=== PATIENT | male | born 1935 | race Caucasian/White ===

== ENCOUNTER 2018-03-06 16:16 | Emergency (ER) | payer MEDICARE, SELFPAY ==
[2018-03-06 16:17] VITALS: BP 160/84; PULSE 116; RESP 17; TEMP 36.3; O2SAT 98; BMI 23.7
--- NOTE | 2018-03-06 16:36 | EKG12_ITS ---
Test Reason : CP Blood Pressure : / mmHG Vent. Rate : 105 BPM Atrial Rate : 105 BPM P-R Int : 160 ms QRS Dur : 094 ms QT Int : 336 ms P-R-T Axes : 063 039 075 degrees QTc Int : 444 ms Sinus tachycardia Nonspecific ST abnormality Abnormal ECG Confirmed by KSENIA BRYANT, KHANG ([id number]), managing editor LIAM KURTZ ([id number] on 03/07/2018 5:17:45 PM Referred By: ES/ Confirmed By:KHANG MCCORMACK MD
--- NOTE | 2018-03-06 16:38 | ED.VISSUMM ---
- ER Visit Summary Date of Service: 03/06/18 Chief Complaint: Chest pain History of Present Illness: The patient is a 82 M who presents with right-sided chest pain that has been constant for the past week. Patient describes as a tightness. Patient states the pain is over the right side of his chest. Patient states nothing makes it better or worse. Patient admits to some lightheadedness and a slight cough. Patient denies any fevers or chills. Patient denies any nausea or vomiting. Patient denies any shortness of breath. Patient denies any diaphoresis. Patient's cardiac risk factors include hypertension. Patient has a pulmonary embolism risk factor of recent travel to [place]. Physical Examination: Vital signs are stable except for mild tachycardia of 116. Patient is afebrile. Patient is in no acute distress. Oral mucosa is pink and moist. Neck is supple. Trachea is midline. There is no JVD noted. Heart was regular slightly tachycardic. There are no murmurs noted. Lungs are clear and equal bilateral. Abdomen is soft. Bowel sounds are normal. There is no tenderness. There is no guarding noted. Skin is warm dry. Cranial nerves II through XII are intact. There are no focal motor or sensory deficits noted. The remaining physical exam is within normal limits. Test Results: EKG showed sinus tachycardia with a rate of 105. There are no acute ST or T wave changes. CBC was normal. Basic metabolic profile showed a slightly elevated glucose of 142. Alk phos is slightly elevated at 137. Troponin was normal at 0.044. D-dimer was elevated at 4.78. CTA of the chest was done because of this. There is no evidence of pulmonary embolism. Emergency Department Course and Treatment: Patient felt better on reevaluation. Patient has a MARGARITA score of 1 and a HEART score of 3. Patient was advised that this is low risk for acute cardiac event. Patient was instructed to follow-up with his primary care physician in 5-7 days. Patient understood and was agreeable with the plan. All questions were answered. Disposition: Discharged home Impression: Chest pain This note was generated with [employer] software. It may contain incorrect words, spelling, and punctuation that were not noted in review of the chart prior to signing ED Disposition - Plan for ED Patient: Disposition: Home or Assisted Living Chief Complaint: Chest Pain Diagnosis: Chest pain of uncertain etiology Instructions: ED Chest Pain Atypical Unkn Cause Referrals: Dylan Bruno III, MD [Primary Care Provider] -
--- NOTE | 2018-03-06 16:55 | RAD_ITS ---
STUDY: X-RAY CHEST REASON FOR EXAM: Male, 82 years old. Chest pain TECHNIQUE: PA and lateral views of the chest. COMPARISON: None. FINDINGS: monitoring specialist leads are present. The lungs are clear and expanded. There is no demonstrated pleural abnormality. Normal size heart. Normal mediastinum and vicky. Normal visualized pulmonary arteries. There are calcified plaques of the thoracic aorta. Normal visualized thoracic spine. Normal visualized ribs, clavicles, and shoulders. There is no demonstrated abnormality of the visualized soft tissue structures of the upper abdomen. RAD/Chest PA and Lateral IMPRESSION: Calcified plaques of the thoracic aorta. No acute cardiopulmonary disease process is seen. Electronically Signed: Jens Montana MD at 17:06 EST , Service support ,
[2018-03-06 17:00] LABS: Absolute Lymphocyte Count 1.76 X10^3/ul (0.83-4.51); Absolute Neutrophil Count 6.9 X10^3/uL (2.0-7.7); Basophil# 0.02 X10^3/uL; Basophil% 0.2 % (0-1); Eosinophil# 0.29 X10^3/uL; Eosinophils% 2.9 % (0-5); Hematocrit 46.3 % (40-54); Hemoglobin 15.4 g/dl (13.0-16.5); Lymphocyte # 1.76 X10^3/ul (4.0); Lymphocyte % 17.7 % (19-41); Mean Corp Hgb Conc 33.3 g/gl (32-36); Mean Corpuscular Hgb 30.9 pg (27.0-32.0); Mean Corpuscular Volume 92.8 fL (80-94); Mean Platelet Vol. 10.9 fl (6.2-12.0); Monocyte# 0.97 X10^3/uL; Monocyte% 9.7 % (0-10); Neutrophil # 6.89 X10^3/uL (2.7-7.7); Neutrophil % 69.3 % (47-70); Platelet Count 139 K/mm3 (150-450); RBC Distribution Width CV 14.1 % (11.6-14.6); RBC Distribution Width SD 47.1 fl (35.1-43.9); Red Blood Count 4.99 M/mm3 (4.6-6.2)
[2018-03-06 17:01] LABS: POSITIVE COUNT NO; POSITIVE DIFFERENTIAL NO; POSITIVE MORPHOLOGY NO
[2018-03-06 17:20] LABS: ALB/GLOB Ratio 0.8 RATIO (0.9-2.4); AST(SGOT) 27 U/L (15-37); Alanine Aminotransfer ALT/SGPT 27 U/L (16-61); Albumin, Serum 3.3 g/dL (3.2-5.0); Alkaline Phosphatase 137 U/L (45-117); Anion Gap 8 (5-15); BUN 21 mg/dL (7-18); BUN/Creat Ratio 17.9 RATIO (10-20); Chloride 106 mmol/L (98-107); Creatinine, Serum 1.17 mg/dL (0.70-1.30); EST Glomerular Filtration Rate 64 mL/min (>60); Est Glom Filt Rate - Afr Amer 77 mL/min (>60); Estimated Creatinine Clearance 51.99 ml/min; Globulin 4.1 g/dL (2.2-4.2); Glucose 142 mg/dL (74-106); Potassium 4.2 mmol/L (3.5-5.1); Protein, Total 7.4 g/dL (6.4-8.2); Sodium Level 139 mmol/L (136-145)
[2018-03-06 17:28] VITALS: BP 147/78; PULSE 90; RESP 20; O2SAT 96
[2018-03-06 17:32] LABS: D-Dimer Quantitative (DVT/PE) 4.78 FEU/ug/m (0.27-0.49)
--- NOTE | 2018-03-06 17:34 | CT_ITS ---
STUDY: CTA CHEST REASON FOR EXAM: Male, 82 years old. Right-sided chest pain, elevated d-dimer RADIATION DOSAGE (If Supplied By Facility): CTDIvol = ( 11.06 ) mGy, DLP = ( 446.19 ) mGycm TECHNIQUE: The examination was performed with the intravenous administration of 100ML ml of Isovue 300 contrast material. Post-processing of the angiographic images was performed, with multiplanar reformation and 3D reconstruction. Individualized dose optimization techniques were used for this CT. COMPARISON: None. FINDINGS: Normal enhancement of the main pulmonary artery and right and left pulmonary arteries. Normal enhancement of the bilateral peripheral pulmonary arteries. There is no demonstrated pulmonary embolism. There are calcified plaques of the thoracic aorta. There is no demonstrated aortic dissection. The heart size is within normal limits. There is no pericardial effusion. Coronary arterial calcifications are noted. Normal mediastinum. Normal hilar regions. Normal visualized trachea and bronchi. The lungs are well expanded. There is a focus of pleural thickening of the right upper lobe apex measuring 1.4 cm. There is an additional 8 mm pleural-based nodule of the anterior right upper lobe apex. Normal chest wall structures. Normal osseous structures. There are multiple hepatic hypodensities measuring up to approximately 4 cm, suspicious for metastatic disease. There appears to be a low-attenuation pancreatic tail mass measuring approximately 4.2 cm in diameter with surrounding fatty stranding. CT/CTA Chest W/WO Contrast IMPRESSION: Normal CTA chest examination, without a demonstrated pulmonary embolism or arterial dissection. Small focus of pleural thickening of the right upper lobe apex measuring 1.4 cm. Additional 8 mm pleural-based nodule of the anterior right upper lobe apex. There are multiple hepatic hypodensities measuring up to approximately 4 cm suspicious for metastatic disease. There appears to be a low-attenuation pancreatic tail mass measuring approximately 4.2 cm with surrounding fatty stranding. MRI is recommended for further evaluation of this finding. Electronically Signed: Jens Montana MD at 18:20 EST , Service support ,
[2018-03-06 19:21] VITALS: BP 162/74; PULSE 95; PULSE 98; RESP 18; O2SAT 98
== END 2018-03-06 19:22 | disposition home or self-care (01) ==
PROVIDERS: Emergency Provider Emergency Medicine; Family Provider Family Medicine; PCP Family Medicine
DX: R07.89 Other chest pain (principal); R42 Dizziness and giddiness; R05 Cough; J34.89 Other specified disorders of nose and nasal sinuses; M54.2 Cervicalgia; R79.89 Other specified abnormal findings of blood chemistry; I10 Essential (primary) hypertension; M06.9 Rheumatoid arthritis, unspecified; Z79.82 Long term (current) use of aspirin; Z79.899 Other long term (current) drug therapy
CPT/HCPCS: 71046; 71275; 80053; 84484; 85025; 85379; 93005; 99285; Q9967; A4216

== ENCOUNTER → 2018-03-22 14:19 | Outpatient (CLI) | payer MEDICARE, SELFPAY ==
[2018-03-06 16:17] VITALS: BMI 23.7
[2018-03-22 15:07] LABS: Creatinine, Serum 1.27 mg/dL (0.70-1.30); EST Glomerular Filtration Rate 58 mL/min (>60); Est Glom Filt Rate - Afr Amer 70 mL/min (>60)
== END ==
PROVIDERS: Family Provider Family Medicine; PCP Family Medicine; Referring Provider Family Medicine; Visit Provider Family Medicine
DX: R16.0 Hepatomegaly, not elsewhere classified (principal)
CPT/HCPCS: 82565

== ENCOUNTER → 2018-04-13 17:34 | Outpatient (CLI) | payer MEDICARE, SELFPAY | PROVIDERS: Family Provider Family Medicine; PCP Family Medicine; Referring Provider Internal Medicine Hematology & Oncology; Visit Provider Internal Medicine Hematology & Oncology | DX: K86.9 Disease of pancreas, unspecified (principal); C78.7 Secondary malignant neoplasm of liver and intrahepatic bile duct | CPT/HCPCS: 86301 ==

== ENCOUNTER → 2018-05-03 15:23 | Outpatient (CLI) | payer MEDICARE, SELFPAY ==
[2018-05-05 09:12] LABS: Carbohydrate AG 19-9 16787 U/mL (0-35)
== END ==
PROVIDERS: Family Provider Family Medicine; PCP Family Medicine; Referring Provider Internal Medicine Hematology & Oncology; Visit Provider Internal Medicine Hematology & Oncology
DX: C25.2 Malignant neoplasm of tail of pancreas (principal)
CPT/HCPCS: 86301